=== PATIENT | female | born 1975 | race American Indian/Alaskan Native ===

== ENCOUNTER 2016-09-01 09:21 | Day surgery (SDC) | payer BC ==
[2016-08-31 16:55] LABS: Hematocrit 22.1 % (30.3-42.9); Hemoglobin 6.1 gm/dl (10.1-14.3)
[2016-09-01] MEDS ORDERED: NACL 0.9% 250ML 250 ML IV ONE (09:29)
[2016-09-01] MEDS ORDERED: TYLENOL PO ONE (09:29)
[2016-09-01] MEDS ORDERED: BENADRYL IV ONE (09:30)
[2016-09-01] MEDS ORDERED: ZOFRAN IV ONE (13:00)
[2016-09-01 14:47] VITALS: BP 116/67
== END 2016-09-01 14:56 | disposition home or self-care (01) ==
LOC: OPU 09:21 → EDSTATUS 09:30 → OPU 14:56
PROVIDERS: ATTEND Internal Medicine Hematology & Oncology
DX: D64.9 Anemia, unspecified (principal)
CPT/HCPCS: 36415; 36430; 85014; 85018; 86850; 86900; 86901; 86920; 96374; 96375; J1200; J2405; J7050; P9016